=== PATIENT | male | born 1965 | race Caucasian/White ===

== ENCOUNTER 2016-03-16 09:15 | Emergency (ER) | payer OTHER ==
--- NOTE | 2016-03-16 09:30 | ECGEPIP ---
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
[2016-03-16 09:52] LABS: BASO % 0.4 % (0.0-1.0); EOS # 0.1 K/mm3 (0.0-0.50); EOS % 1.8 % (0.0-3.0); LARGE UNSTAINED CELL # 0.2 K/mm3 (0.0-0.4); LARGE UNSTAINED CELL % 2.3 % (0.0-4.0); LYMPH # 1.2 K/mm3 (1.5-4.5); LYMPH % 16.4 % (24.0-44.0); MEAN CORPUSCULAR HEMOGLOBIN 33.9 pg (27.0-33.0); MEAN CORPUSCULAR HGB CONC 35.8 g/dl (32.0-36.5); MEAN CORPUSCULAR VOLUME 94.5 fl (80.0-96.0); MONO # 0.6 K/mm3 (0.0-0.8); MONO % 8.1 % (0.0-5.0); NEUTROPHILS # 5.2 K/mm3 (1.8-7.7); PLATELET COUNT, AUTOMATED 304 k/mm3 (150-450); RED CELL DISTRIBUTION WIDTH 12.2 % (11.5-14.5); WHITE BLOOD COUNT 7.3 K/mm3 (4.0-10.0)
[2016-03-16 10:14] LABS: ALKALINE PHOSPHATASE 75 U/L (45-117); ALT/SGPT 26 U/L (12-78); ANION GAP 9 MEQ/L (8-16); AST/SGOT 28 U/L (15-37); BILIRUBIN,DIRECT 0.2 MG/DL (0.0-0.2); BILIRUBIN,TOTAL 0.6 MG/DL (0.2-1.0); BLOOD UREA NITROGEN 8 MG/DL (7-18); CALCIUM LEVEL 8.6 MG/DL (8.5-10.1); CARBON DIOXIDE LEVEL 27 MEQ/L (21-32); CHLORIDE LEVEL 98 MEQ/L (98-107); CREATININE FOR GFR 0.83 MG/DL (0.70-1.30); GLOMERULAR FILTRATION RATE > 60.0 (>56); GLUCOSE, FASTING 147 MG/DL (70-105); SODIUM LEVEL 134 MEQ/L (136-145)
[2016-03-16 10:18] LABS: ALBUMIN/GLOBULIN RATIO 1.18 (1.00-1.93); TOTAL PROTEIN 7.4 GM/DL (6.4-8.2)
[2016-03-16] MEDS ORDERED: PANTOPRAZOLE 40MG INJ (PROTONIX) (C9113) As Ordered ONE (11:20)
[2016-03-16] MEDS ORDERED: GI COCKTAIL 50ML BTL(HYOSCYAMINE/MAALOX/LIDOCAINE VISCOUS)(1:3:1) As Ordered ONE (11:20)
--- NOTE | 2016-03-16 12:29 | REP ---
Chest two views HISTORY: Chest pain Comparison: 01/20/2010 The lungs are clear. The heart is normal in size. The pulmonary vasculature is normal in appearance. The bony structure is intact. IMPRESSION: No acute disease. Signed by Lyle Núñez MD 03/16/2016 12:20 P
--- NOTE | 2016-03-16 14:27 | EDDOCDS ---
Nurse's Notes [facility] Name: Paz Schmidt Age: 50 yrs Sex: Male : 1965 Arrival Date: 03/16/2016 Time: 09:15 Bed 18 Private MD: No Pcp Diagnosis: Gastro-esophageal reflux disease Presentation: 03/16 09:23 Presenting complaint: Patient states: burning in his chest for the past 2 weeks. jc4 Aspirin was taken SHERIFF. Suicide/Homicide risk assessment- the patient denies having any suicidal and/or homicidal ideations and does not present with any other emotional, behavioral or mental health complaints. 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 Transition of care: patient was not received from another setting of care. 09:23 Acuity: JUNITO Level 2 jc4 09:23 Method Of Arrival: Wheelchair jc4 09:27 Adult Sepsis Screening: The patient does not have new or worsening altered mentation. jc4 Patient's respiratory rate is less than 22. Systolic blood pressure is greater than 100. Patient has a qSOFA score of 0- Negative Sepsis Screen. Red Flag criteria, patient assessed and taken directly to a bed. Triage Assessment: 09:26 General: Appears in no apparent distress. Pain: Pain currently is 7 out of 10 on a pain jc4 scale. HIV screening NA for this visit Offered previously. Cardiovascular: Chest pain is described as Pain is 7 out of 10 on a pain scale. quality is burning, with intermittent tightness "in the middle of my chest" radiates Does not radiate. episodes are intermittent began 2 weeks ago. Historical: - Allergies: no known allergies; - Home Meds: 1. Zantac 150 mg Oral tab 1 tab once daily (Last dose: 03/16/2016 07:00) 2. aspirin 81 mg Oral TbEC 1 tab once daily (Last dose: 03/16/2016 07:00) 3. Vitamin C 1,000 mg Oral tab 1,000 mg daily (Last dose: 03/16/2016 07:00) 4. Calcium + Vitamin D 600 mg calcium- 200 unit Oral tab 1 tab daily (Last dose: 03/16/2016 07:00) - PMHx: GERD; - PSHx: none; - Social history: Smoking status: Patient uses tobacco products, heavy tobacco smoker. No barriers to communication noted, The patient speaks fluent Croatian. - Family history: Not pertinent. - : The pt / caregiver states he / she is not on anticoagulants. Home medication list is obtained from family members. - Exposure Risk Screening:: None identified. Screenin:53 Screening information is obtained from the patient. Fall risk: No risks identified. hs1 Assistance ADL's: requires no assistance with activities of daily living. Abuse/DV Screen: The patient / caregiver reports he/she is: not in a situation that causes fear, pain or injury. Nutritional screening: No deficits noted. Advance Directives: There is no active DNR order. home support is adequate. Assessment: 09:52 General: Appears in no apparent distress, Behavior is appropriate for age, cooperative. hs1 Pain: Location: chest Pain currently is 3 out of 10 on a pain scale. Quality of pain is described as burning. Neurological: No deficits noted. Cardiovascular: Rhythm is sinus rhythm. Respiratory: Airway is patent Respiratory effort is even, unlabored, Respiratory pattern is regular, symmetrical. Derm: Skin is pink, warm & dry. normal. 11:01 Reassessment: Patient appears in no apparent distress at this time. resting on hs1 stretcher talking with resident at this time. . 12:02 General: Appears in no apparent distress, comfortable, Behavior is appropriate for age, hs1 cooperative, Pt being wheeled to X-ray at present. Pt Sinus rhythm on monitor. No other needs noted. . Cardiovascular: Rhythm is sinus rhythm No ectopy. Respiratory: Airway is patent Respiratory effort is even, unlabored, Respiratory pattern is regular, symmetrical, Breath sounds are clear bilaterally. Derm: Skin is pink, warm & dry. normal. 14:24 General: Appears in no apparent distress, comfortable, Behavior is appropriate for age, aa3 cooperative. Pain: Location: mid-sternal area Pain currently is 6 out of 10 on a pain scale. Pain: Quality of pain is described as burning. Neurological: Level of Consciousness is awake, alert, Oriented to person, place, time. Cardiovascular: Capillary refill < 3 seconds. Respiratory: Airway is patent Respiratory effort is even, unlabored, Respiratory pattern is regular, symmetrical. Derm: Skin is intact, is healthy with good turgor. Vital Signs: 09:18 BP 139 / 80; Pulse 81; Resp 18 S; Temp 96.3(O); Pulse Ox 100% on R/A; Weight 67.13 kg gr2 (R); Height 6 ft. 1 in. (185.42 cm) (R); Pain 6/10; 09:30 BP 140 / 85 (auto/); hs1 09:32 Pulse 80 MON; Pulse Ox 99% ; hs1 09:45 BP 136 / 84 (auto/); hs1 09:45 Pulse 74 MON; Pulse Ox 98% ; hs1 10:00 BP 134 / 82 (auto/); hs1 10:00 Pulse 66 MON; Resp 18; Pulse Ox 98% ; hs1 10:15 BP 122 / 79 (auto/); hs1 10:15 Pulse 66 MON; Pulse Ox 99% ; hs1 10:30 BP 127 / 88 (auto/); hs1 10:30 Pulse 70 MON; Pulse Ox 98% ; hs1 10:45 BP 130 / 88 (auto/); hs1 10:46 Pulse 70 MON; Pulse Ox 98% ; hs1 11:00 BP 127 / 83 (auto/); hs1 11:00 Pulse 68 MON; Pulse Ox 97% ; hs1 11:15 BP 125 / 83 (auto/); hs1 11:15 Pulse 66 MON; Pulse Ox 98% ; hs1 11:30 BP 130 / 84 (auto/); hs1 11:31 Pulse 66 MON; Pulse Ox 99% ; hs1 11:45 BP 126 / 83 (auto/); hs1 11:46 Pulse 66 MON; Pulse Ox 99% ; hs1 12:00 BP 128 / 85 (auto/); hs1 12:01 Pulse 68 MON; Resp 18; Pulse Ox 98% ; hs1 12:15 BP 127 / 80 (auto/); hs1 12:16 Pulse 62 MON; Pulse Ox 99% ; hs1 12:30 BP 120 / 82 (auto/); hs1 12:30 Pulse 62 MON; Pulse Ox 98% ; hs1 12:45 BP 122 / 79 (auto/); hs1 12:46 Pulse 60 MON; Pulse Ox 98% ; hs1 14:24 BP 124 / 74; Pulse 66; Resp 16; Temp 97.8(O); Pulse Ox 96% on R/A; Pain 6/10; aa3 09:18 Body Mass Index 19.53 (67.13 kg, 185.42 cm) gr2 Vitals: 09:18 Log In Time: March 16, 2016 at 09:18. RN notified that patient meets Red Flag gr2 criteria. ED Course: 09:16 Patient visited by Brinda Montes. gr2 09:16 Patient moved to Waiting gr2 09:17 No Pcp is Private Physician. gr2 09:19 Patient visited by Brinda Montes. gr2 09:19 Patient moved to Pre RCE gr2 09:21 Patient moved to 18 jc4 09:24 Triage Initiated jc4 09:30 EKG done per protocol. Shown to Amparo Sousa MD. jc4 09:31 Accompanied by Family Member, Patient has correct armband on for positive ct3 identification. Placed in gown. Bed in low position. Call light in reach. Side rails up X2. quick service technician on. Pulse ox on. NIBP on. 09:31 EKG done. (by ED staff). Reviewed by Amparo Sousa MD. ct3 09:32 Patient visited by Isabel Mcnally PCA. ct3 09:46 EKG-ADULT Returned. EDMS 09:47 Basic Metabolic Profile Sent. hs1 09:47 CBC with Diff Sent. hs1 09:47 Cardiac Injury Profile Sent. hs1 09:47 Troponin Sent. hs1 09:51 LIVER PROFILE Sent. hs1 09:51 LIPASE Sent. hs1 09:51 Inserted saline lock: 20 gauge in right antecubital area and blood collected. The hs1 patient tolerated the procedure well. 10:07 Patient visited by Farideh Curry RN. hs1 10:11 [facility] jo4 10:11 Amparo Sousa MD is Attending Physician. jo4 10:15 Patient visited by Susy Maza DO. jo4 10:55 Patient visited by Farideh Curry RN. hs1 11:12 Patient name changed from Paz\\S\\J\\S\\Kitto\\S\\ to Paz\\S\\Carlos Alberto\\S\\Kitto. EDMS 11:16 [facility] Payment Agreement was scanned into [employer] and attached to record. pm4 11:25 Patient visited by Farideh Curry RN. hs1 11:58 Patient visited by Daniel Jernigan PCA. jlf 12:04 The patient / caregiver is instructed regarding the plan of care and ED course. hs1 12:29 Patient visited by Farideh Curry RN. hs1 12:42 Chest, 2 View (pa\\E\\lat) Returned. EDMS 13:01 Patient visited by Farideh Curry RN. hs1 14:01 Patient visited by Amparo Sousa MD. br1 14:06 Lyle Murdock DO is Referral Physician. jo4 14:24 Discontinued IV intact, bleeding controlled, No redness/swelling at site. No procedures aa3 done that require assistance. Administered Medications: 11:26 Drug: pantoprazole 40 mg [pantoprazole 40 mg intravenous solution] Route: IV; Rate: hs1 bolus; Site: right antecubital; 11:26 Drug: GI Cocktail - (Alum-Mag Hydroxide-Simeth Suspension 225 mg-200 mg-25 mg/5 mL 30 hs1 ml, Lidocaine Liquid 2 % 10 ml, Hyoscyamine Liquid 10 ml) Route: PO; Order Results: Lab Order: Basic Metabolic Profile; SPEC'M 03/16/16 09:40 Test: GLUCOSE, FASTING; Value: 147; Range: 70-105; Abnormal: Above high normal; Units: MG/DL; Status: F Test: BLOOD UREA NITROGEN; Value: 8; Range: 7-18; Units: MG/DL; Status: F Test: CREATININE FOR GFR; Value: 0.83; Range: 0.70-1.30; Units: MG/DL; Status: F Test: GLOMERULAR FILTRATION RATE; Value: > 60.0; Range: >56; Status: F Test: SODIUM LEVEL; Value: 134; Range: 136-145; Abnormal: Below low normal; Units: MEQ/L; Status: F Test: POTASSIUM SERUM; Value: 4.0; Range: 3.5-5.1; Units: MEQ/L; Status: F Test: CHLORIDE LEVEL; Value: 98; Range: 98-107; Units: MEQ/L; Status: F Test: CARBON DIOXIDE LEVEL; Value: 27; Range: 21-32; Units: MEQ/L; Status: F Test: ANION GAP; Value: 9; Range: 8-16; Units: MEQ/L; Status: F Test: CALCIUM LEVEL; Value: 8.6; Range: 8.5-10.1; Units: MG/DL; Status: F Test Note: ; Units are mL/min/1.73 m2 Chronic Kidney Disease Staging per NKF: Stage I & II GFR >=60 Normal to Mildly Decreased Stage III GFR 30-59 Moderately Decreased Stage IV GFR 15-29 Severely Decreased Stage V GFR <15 Very Little GFR Left ESRD GFR <15 on ACCIDENT EXAMINER Lab Order: CBC with Diff; SPEC'M 03/16/16 09:40 Test: WHITE BLOOD COUNT; Value: 7.3; Range: 4.0-10.0; Units: K/mm3; Status: F Test: RED BLOOD COUNT; Value: 4.83; Range: 4.30-6.10; Units: M/mm3; Status: F Test: HEMOGLOBIN; Value: 16.3; Range: 14.0-18.0; Units: g/dl; Status: F Test: HEMATOCRIT; Value: 45.6; Range: 42.0-52.0; Units: %; Status: F Test: MEAN CORPUSCULAR VOLUME; Value: 94.5; Range: 80.0-96.0; Units: fl; Status: F Test: MEAN CORPUSCULAR HEMOGLOBIN; Value: 33.9; Range: 27.0-33.0; Abnormal: Above high normal; Units: pg; Status: F Test: MEAN CORPUSCULAR HGB CONC; Value: 35.8; Range: 32.0-36.5; Units: g/dl; Status: F Test: RED CELL DISTRIBUTION WIDTH; Value: 12.2; Range: 11.5-14.5; Units: %; Status: F Test: PLATELET COUNT, AUTOMATED; Value: 304; Range: 150-450; Units: k/mm3; Status: F Test: NEUTROPHILS %; Value: 71.0; Range: 36.0-66.0; Abnormal: Above high normal; Units: %; Status: F Test: LYMPH %; Value: 16.4; Range: 24.0-44.0; Abnormal: Below low normal; Units: %; Status: F Test: MONO %; Value: 8.1; Range: 0.0-5.0; Abnormal: Above high normal; Units: %; Status: F Test: EOS %; Value: 1.8; Range: 0.0-3.0; Units: %; Status: F Test: BASO %; Value: 0.4; Range: 0.0-1.0; Units: %; Status: F Test: LARGE UNSTAINED CELL %; Value: 2.3; Range: 0.0-4.0; Units: %; Status: F Test: NEUTROPHILS #; Value: 5.2; Range: 1.8-7.7; Units: K/mm3; Status: F Test: LYMPH #; Value: 1.2; Range: 1.5-4.5; Abnormal: Below low normal; Units: K/mm3; Status: F Test: MONO #; Value: 0.6; Range: 0.0-0.8; Units: K/mm3; Status: F Test: EOS #; Value: 0.1; Range: 0.0-0.50; Units: K/mm3; Status: F Test: BASO #; Value: 0.0; Range: 0.0-0.2; Units: K/mm3; Status: F Test: LARGE UNSTAINED CELL #; Value: 0.2; Range: 0.0-0.4; Units: K/mm3; Status: F Lab Order: Cardiac Injury Profile; SPEC'M 03/16/16 09:40 Test: CPK CREATINE PHOSPHOKINASE; Value: 109; Range: 39-308; Units: U/L; Status: F Test: CK-MB VALUE MASS; Value: 1.0; Range: 0.0-3.6; Units: NG/ML; Status: F Test: MB/CK RELATIVE INDEX; Value: 0.91; Range: < OR =4; Status: F Test Note: ; DIAGNOSIS CRITERIA MMB ng/ml Relative Index (RI) NON-AMI < or = 5 N/A MILLS ZONE > 5 < or = 4 AMI > 5 > 4 Lab Order: Troponin; SPEC'M 03/16/16 09:40 Test: TROPONIN I; Value: < 0.02; Range: < 0.10; Units: NG/ML; Status: F Test Note: ; Troponin I Reference Interval for [place] LOCI: 99th Percentile= 0.00-0.045 ng/ml Risk Stratification: <= 0.10 ng/ml Decreased Risk for Adverse Clinical Events. 0.10-1.50 ng/ml Increased Risk for Adverse Clinical Events. Evaluation of additional criterion and/or repeat testing in 2-6 hours is suggested to rule out myocardial damage. >= 1.50 ng/ml Indicative of Myocardial Injury. Lab Order: LIPASE; SPEC'M 03/16/16 09:40 Test: LIPASE; Value: 111; Range: 73-393; Units: U/L; Status: F Lab Order: LIVER PROFILE; SPEC'M 03/16/16 09:40 Test: AST/SGOT; Value: 28; Range: 15-37; Units: U/L; Status: F Test: ALT/SGPT; Value: 26; Range: 12-78; Units: U/L; Status: F Test: ALKALINE PHOSPHATASE; Value: 75; Range: 45-117; Units: U/L; Status: F Test: BILIRUBIN,TOTAL; Value: 0.6; Range: 0.2-1.0; Units: MG/DL; Status: F Test: BILIRUBIN,DIRECT; Value: 0.2; Range: 0.0-0.2; Units: MG/DL; Status: F Test: TOTAL PROTEIN; Value: 7.4; Range: 6.4-8.2; Units: GM/DL; Status: F Test: ALBUMIN; Value: 4.0; Range: 3.2-5.2; Units: GM/DL; Status: F Test: ALBUMIN/GLOBULIN RATIO; Value: 1.18; Range: 1.00-1.93; Status: F Radiology Order: EKG-ADULT Test: EKG-ADULT REASON FOR EXAMINATION: Chest Pain; Stationary ECG Study; [facility] - ED; ; Test Date: 2016-03-16; Pat Name: PAZ SCHMIDT Department:; Room: -; 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 The heart is normal in size. The pulmonary vasculature is; normal in appearance. The bony structure is intact.; ; IMPRESSION: No acute disease.; ; ; Signed by; Lyle Núñez MD 03/16/2016 12:20 P; Outcome: 14:07 Discharge ordered by Provider. jo4 14:26 Discharge Assessment: Patient awake and alert. Oriented to person, place and time. aa3 Patient verbalized understanding of disposition instructions. Patient has no functional deficits. patient administered narcotics - no. The following High Risk Discharge criteria are identified: None. Discharged to home ambulatory, with significant other. Condition: good. Discharge instructions given to patient, Instructed on discharge instructions, follow up and referral plans. medication usage, Demonstrated understanding of instructions, medications, Pt was receptive of discharge instructions/ teaching. Prescriptions given X 1. No special radiology studies were completed. Property :Personal belongings accompany Pt. 14:27 Patient left the ED. aa3 Signatures: Dispatcher [employer] EDMS Amparo Sousa MD MD br1 Farideh Curry RN RN hs1 Keesha Peters RN RN jc4 Isabel Mcnally, VP SECURITY VP SECURITY ct3 Brinda Montes gr2 Emilee Bill RN RN aa3 Daniel Jernigan, VP SECURITY VP SECURITY nadinef Susy Maza DO DO jo4 Benedicto Francis, Reg Reg pm4 Corrections: (The following items were deleted from the chart) 09:50 09:47 LIPASE+LAB sent. hs1 EDMS 09:50 09:47 LIVER PROFILE+LAB sent. 1 EDMS [facility]
--- NOTE | 2016-03-16 14:27 | EDDOCDS ---
Physician Documentation [facility] Name: Roosevelt Schmidt Age: 50 yrs Sex: Male : 1965 Arrival Date: 03/16/2016 Time: 09:15 Bed 18 Private MD: No Pcp Disposition: 03/16 14:16 I have independently interviewed and examined the patient, and I agree with the br1 investigation, diagnosis and treatment plan as documented by the Resident. Disposition: 03/16/16 14:07 Discharged to Home/Self Care. Impression: Gastro-esophageal reflux disease. - Condition is Stable. - Discharge Instructions: Gastroesophageal Reflux Disease, Adult. - Prescriptions for Protonix 40 mg Oral Tablet - take 1 tablet by ORAL route once daily; 30 tablet. - Medication Reconciliation, Local Pharmacy Hours form. - Follow up: Lyle Murdock DO; When: 1 week; Reason: Recheck today's complaints. - Problem is new. - Symptoms have improved. - Notes: You were seen in the emergency department for gastroesophageal reflux disease. Your chest x-ray returned reporting no acute disease and laboratory results showed no abnormalities. You were medically managed appropriately while in the ED. A medication called Protonix has been prescribed to control your symtpoms. Please follow-up with Dr. Murdock in 1 week. Historical: - Allergies: no known allergies; - Home Meds: 1. Zantac 150 mg Oral tab 1 tab once daily (Last dose: 03/16/2016 07:00) 2. aspirin 81 mg Oral TbEC 1 tab once daily (Last dose: 03/16/2016 07:00) 3. Vitamin C 1,000 mg Oral tab 1,000 mg daily (Last dose: 03/16/2016 07:00) 4. Calcium + Vitamin D 600 mg calcium- 200 unit Oral tab 1 tab daily (Last dose: 03/16/2016 07:00) - PMHx: GERD; - PSHx: none; - Social history: Smoking status: Patient uses tobacco products, heavy tobacco smoker. No barriers to communication noted, The patient speaks fluent Croatian. - Family history: Not pertinent. - : The pt / caregiver states he / she is not on anticoagulants. Home medication list is obtained from family members. - Exposure Risk Screening:: None identified. Vital Signs: 09:18 BP 139 / 80; Pulse 81; Resp 18 S; Temp 96.3(O); Pulse Ox 100% on R/A; Weight 67.13 kg / gr2 148 lbs (R); Height 6 ft. 1 in. (185.42 cm) (R); Pain 6/10; 09:30 BP 140 / 85 (auto/); hs1 09:32 Pulse 80 MON; Pulse Ox 99% ; hs1 09:45 BP 136 / 84 (auto/); hs1 09:45 Pulse 74 MON; Pulse Ox 98% ; hs1 10:00 BP 134 / 82 (auto/); hs1 10:00 Pulse 66 MON; Resp 18; Pulse Ox 98% ; hs1 10:15 BP 122 / 79 (auto/); hs1 10:15 Pulse 66 MON; Pulse Ox 99% ; hs1 10:30 BP 127 / 88 (auto/); hs1 10:30 Pulse 70 MON; Pulse Ox 98% ; hs1 10:45 BP 130 / 88 (auto/); hs1 10:46 Pulse 70 MON; Pulse Ox 98% ; hs1 11:00 BP 127 / 83 (auto/); hs1 11:00 Pulse 68 MON; Pulse Ox 97% ; hs1 11:15 BP 125 / 83 (auto/); hs1 11:15 Pulse 66 MON; Pulse Ox 98% ; hs1 11:30 BP 130 / 84 (auto/); hs1 11:31 Pulse 66 MON; Pulse Ox 99% ; hs1 11:45 BP 126 / 83 (auto/); hs1 11:46 Pulse 66 MON; Pulse Ox 99% ; hs1 12:00 BP 128 / 85 (auto/); hs1 12:01 Pulse 68 MON; Resp 18; Pulse Ox 98% ; hs1 12:15 BP 127 / 80 (auto/); hs1 12:16 Pulse 62 MON; Pulse Ox 99% ; hs1 12:30 BP 120 / 82 (auto/); hs1 12:30 Pulse 62 MON; Pulse Ox 98% ; hs1 12:45 BP 122 / 79 (auto/); hs1 12:46 Pulse 60 MON; Pulse Ox 98% ; hs1 14:24 BP 124 / 74; Pulse 66; Resp 16; Temp 97.8(O); Pulse Ox 96% on R/A; Pain 6/10; aa3 09:18 Body Mass Index 19.53 (67.13 kg, 185.42 cm) gr2 MDM: 09:22 ECG WITH READING ER PHYS+CARDIAG ordered. EDMS 09:43 Sports Journalist/Pulse Ox/q 30 min VS ordered. br1 09:43 IV Saline Lock ordered. br1 09:43 Rhythm Strip to chart ordered. br1 09:43 Undress patient appropriately for examination ordered. br1 09:44 Basic Metabolic Profile Ordered. EDMS 09:44 CBC with Diff Ordered. EDMS 09:44 Cardiac Injury Profile Ordered. EDMS 09:44 Troponin Ordered. EDMS 09:50 LIPASE Ordered. EDMS 09:50 LIVER PROFILE Ordered. EDMS 11:08 Financial registration complete. pm4 11:16 [facility] Payment Agreement was scanned into [employer] and attached to record. pm4 11:17 pantoprazole 40 mg IV at bolus once ordered. jo4 11:17 GI Cocktail - (Alum-Mag Hydroxide-Simeth 30 ml, Lidocaine 10 ml, Hyoscyamine 10 ml) PO jo4 once; Pre-mixed 50mL unit dose ordered. 11:18 Chest, 2 View (pa\E\lat) Ordered. EDMS 11:46 LIVER PROFILE Reviewed. jo4 11:47 Basic Metabolic Profile Reviewed. jo4 11:47 CBC with Diff Reviewed. jo4 11:48 Cardiac Injury Profile Reviewed. jo4 11:48 Troponin Reviewed. jo4 11:48 LIPASE Reviewed. jo4 13:31 Chest, 2 View (pa\E\lat) Reviewed. jo4 Administered Medications: 11:26 Drug: pantoprazole 40 mg [pantoprazole 40 mg intravenous solution] Route: IV; Rate: hs1 bolus; Site: right antecubital; 11:26 Drug: GI Cocktail - (Alum-Mag Hydroxide-Simeth Suspension 225 mg-200 mg-25 mg/5 mL 30 hs1 ml, Lidocaine Liquid 2 % 10 ml, Hyoscyamine Liquid 10 ml) Route: PO; Signatures: Dispatcher [employer] EDMS Bert Sousa MD MD br1 Keesha Peters RN RN jc4 Emilee Bill RN RN aa3 Susy Maza DO DO jo4 Benedicto Francis, Reg Reg pm4 Farideh Curry RN hs1 The chart was reviewed and I authenticate all verbal orders and agree with the evaluation and treatment provided.Corrections: (The following items were deleted from the chart) 09:44 LIVER PROFILE+LAB ordered. EDMS EDMS :50 09:44 LIPASE+LAB ordered. EDMS EDMS Attachments: 11:16 [facility] Payment Agreement pm4 MTDD
--- NOTE | 2016-03-18 15:28 | EDDOCDS ---
Nurse's Notes [facility] Name: Paz Schmidt Age: 50 yrs Sex: Male : 1965 Arrival Date: 03/16/2016 Time: 09:15 Bed 18 Private MD: No Pcp Diagnosis: Gastro-esophageal reflux disease Presentation: 03/16 09:23 Presenting complaint: Patient states: burning in his chest for the past 2 weeks. 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 Suicide/Homicide risk assessment- the patient denies having any suicidal and/or homicidal ideations and does not present with any other emotional, behavioral or mental health complaints. 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 Transition of care: patient was not received from another setting of care. 09:23 Acuity: JUNITO Level 2 jc4 09:23 Method Of Arrival: Wheelchair jc4 09:27 Adult Sepsis Screening: The patient does not have new or worsening altered mentation. jc4 Patient's respiratory rate is less than 22. Systolic blood pressure is greater than 100. Patient has a qSOFA score of 0- Negative Sepsis Screen. Red Flag criteria, patient assessed and taken directly to a bed. Triage Assessment: 09:26 General: Appears in no apparent distress. Pain: Pain currently is 7 out of 10 on a pain jc4 scale. HIV screening NA for this visit Offered previously. Cardiovascular: Chest pain is described as Pain is 7 out of 10 on a pain scale. quality is burning, with intermittent tightness "in the middle of my chest" radiates Does not radiate. episodes are intermittent began 2 weeks ago. Historical: - Allergies: no known allergies; - Home Meds: 1. Zantac 150 mg Oral tab 1 tab once daily (Last dose: 03/16/2016 07:00) 2. aspirin 81 mg Oral TbEC 1 tab once daily (Last dose: 03/16/2016 07:00) 3. Vitamin C 1,000 mg Oral tab 1,000 mg daily (Last dose: 03/16/2016 07:00) 4. Calcium + Vitamin D 600 mg calcium- 200 unit Oral tab 1 tab daily (Last dose: 03/16/2016 07:00) - PMHx: GERD; - PSHx: none; - Social history: Smoking status: Patient uses tobacco products, heavy tobacco smoker. No barriers to communication noted, The patient speaks fluent Mauritian. - Family history: Not pertinent. - : The pt / caregiver states he / she is not on anticoagulants. Home medication list is obtained from family members. - Exposure Risk Screening:: None identified. Screenin:53 Screening information is obtained from the patient. Fall risk: No risks identified. hs1 Assistance ADL's: requires no assistance with activities of daily living. Abuse/DV Screen: The patient / caregiver reports he/she is: not in a situation that causes fear, pain or injury. Nutritional screening: No deficits noted. Advance Directives: There is no active DNR order. home support is adequate. Assessment: 09:52 General: Appears in no apparent distress, Behavior is appropriate for age, cooperative. hs1 Pain: Location: chest Pain currently is 3 out of 10 on a pain scale. Quality of pain is described as burning. Neurological: No deficits noted. Cardiovascular: Rhythm is sinus rhythm. Respiratory: Airway is patent Respiratory effort is even, unlabored, Respiratory pattern is regular, symmetrical. Derm: Skin is pink, warm & dry. normal. 11:01 Reassessment: Patient appears in no apparent distress at this time. resting on hs1 stretcher talking with resident at this time. . 12:02 General: Appears in no apparent distress, comfortable, Behavior is appropriate for age, hs1 cooperative, Pt being wheeled to X-ray at present. Pt Sinus rhythm on monitor. No other needs noted. . Cardiovascular: Rhythm is sinus rhythm No ectopy. Respiratory: Airway is patent Respiratory effort is even, unlabored, Respiratory pattern is regular, symmetrical, Breath sounds are clear bilaterally. Derm: Skin is pink, warm & dry. normal. 14:24 General: Appears in no apparent distress, comfortable, Behavior is appropriate for age, aa3 cooperative. Pain: Location: mid-sternal area Pain currently is 6 out of 10 on a pain scale. Pain: Quality of pain is described as burning. Neurological: Level of Consciousness is awake, alert, Oriented to person, place, time. Cardiovascular: Capillary refill < 3 seconds. Respiratory: Airway is patent Respiratory effort is even, unlabored, Respiratory pattern is regular, symmetrical. Derm: Skin is intact, is healthy with good turgor. Vital Signs: 09:18 BP 139 / 80; Pulse 81; Resp 18 S; Temp 96.3(O); Pulse Ox 100% on R/A; Weight 67.13 kg gr2 (R); Height 6 ft. 1 in. (185.42 cm) (R); Pain 6/10; 09:30 BP 140 / 85 (auto/); hs1 09:32 Pulse 80 MON; Pulse Ox 99% ; hs1 09:45 BP 136 / 84 (auto/); hs1 09:45 Pulse 74 MON; Pulse Ox 98% ; hs1 10:00 BP 134 / 82 (auto/); hs1 10:00 Pulse 66 MON; Resp 18; Pulse Ox 98% ; hs1 10:15 BP 122 / 79 (auto/); hs1 10:15 Pulse 66 MON; Pulse Ox 99% ; hs1 10:30 BP 127 / 88 (auto/); hs1 10:30 Pulse 70 MON; Pulse Ox 98% ; hs1 10:45 BP 130 / 88 (auto/); hs1 10:46 Pulse 70 MON; Pulse Ox 98% ; hs1 11:00 BP 127 / 83 (auto/); hs1 11:00 Pulse 68 MON; Pulse Ox 97% ; hs1 11:15 BP 125 / 83 (auto/); hs1 11:15 Pulse 66 MON; Pulse Ox 98% ; hs1 11:30 BP 130 / 84 (auto/); hs1 11:31 Pulse 66 MON; Pulse Ox 99% ; hs1 11:45 BP 126 / 83 (auto/); hs1 11:46 Pulse 66 MON; Pulse Ox 99% ; hs1 12:00 BP 128 / 85 (auto/); hs1 12:01 Pulse 68 MON; Resp 18; Pulse Ox 98% ; hs1 12:15 BP 127 / 80 (auto/); hs1 12:16 Pulse 62 MON; Pulse Ox 99% ; hs1 12:30 BP 120 / 82 (auto/); hs1 12:30 Pulse 62 MON; Pulse Ox 98% ; hs1 12:45 BP 122 / 79 (auto/); hs1 12:46 Pulse 60 MON; Pulse Ox 98% ; hs1 14:24 BP 124 / 74; Pulse 66; Resp 16; Temp 97.8(O); Pulse Ox 96% on R/A; Pain 6/10; aa3 09:18 Body Mass Index 19.53 (67.13 kg, 185.42 cm) gr2 Vitals: 09:18 Log In Time: March 16, 2016 at 09:18. RN notified that patient meets Red Flag gr2 criteria. ED Course: 09:16 Patient visited by Brinda Montes. gr2 09:16 Patient moved to Waiting gr2 09:17 No Pcp is Private Physician. gr2 09:19 Patient visited by Brinda Montes. gr2 09:19 Patient moved to Pre RCE gr2 09:21 Patient moved to 18 jc4 09:24 Triage Initiated jc4 09:30 EKG done per protocol. Shown to Amparo Sousa MD. jc4 09:31 Accompanied by Family Member, Patient has correct armband on for positive ct3 identification. Placed in gown. Bed in low position. Call light in reach. Side rails up X2. property assessment monitor on. Pulse ox on. NIBP on. 09:31 EKG done. (by ED staff). Reviewed by Amparo Sousa MD. ct3 09:32 Patient visited by Isabel Mcnally PCA. ct3 09:46 EKG-ADULT Returned. EDMS 09:47 Basic Metabolic Profile Sent. hs1 09:47 CBC with Diff Sent. hs1 09:47 Cardiac Injury Profile Sent. hs1 09:47 Troponin Sent. hs1 09:51 LIVER PROFILE Sent. hs1 09:51 LIPASE Sent. hs1 09:51 Inserted saline lock: 20 gauge in right antecubital area and blood collected. The hs1 patient tolerated the procedure well. 10:07 Patient visited by Farideh Crury RN. hs1 10:11 Susy Maza DO is [facility]. jo4 10:11 Amparo Sousa MD is Attending Physician. jo4 10:15 Patient visited by Susy Maza DO. jo4 10:55 Patient visited by Farideh Curry RN. hs1 11:12 Patient name changed from Paz\\S\\J\\S\\Kitto\\S\\ to Paz\\S\\Carlos Alberto\\S\\Kitto. EDMS 11:16 [facility] Payment Agreement was scanned into [employer] and attached to record. pm4 11:25 Patient visited by Farideh Curry RN. hs1 11:58 Patient visited by Daniel Jernigan PCA. jlf 12:04 The patient / caregiver is instructed regarding the plan of care and ED course. hs1 12:29 Patient visited by Farideh Curry RN. hs1 12:42 Chest, 2 View (pa\\E\\lat) Returned. EDMS 13:01 Patient visited by Farideh Curry RN. hs1 14:01 Patient visited by Amparo Sousa MD. br1 14:06 Lyle Murdock DO is Referral Physician. jo4 14:24 Discontinued IV intact, bleeding controlled, No redness/swelling at site. No procedures aa3 done that require assistance. 03/17 11:10 T-Sheet-- Draft Copy was scanned into [employer] and attached to record. gb Administered Medications: 03/16 11:26 Drug: pantoprazole 40 mg [pantoprazole 40 mg intravenous solution] Route: IV; Rate: hs1 bolus; Site: right antecubital; 11:26 Drug: GI Cocktail - (Alum-Mag Hydroxide-Simeth Suspension 225 mg-200 mg-25 mg/5 mL 30 hs1 ml, Lidocaine Liquid 2 % 10 ml, Hyoscyamine Liquid 10 ml) Route: PO; Order Results: Lab Order: Basic Metabolic Profile; SPEC'M 03/16/16 09:40 Test: GLUCOSE, FASTING; Value: 147; Range: 70-105; Abnormal: Above high normal; Units: MG/DL; Status: F Test: BLOOD UREA NITROGEN; Value: 8; Range: 7-18; Units: MG/DL; Status: F Test: CREATININE FOR GFR; Value: 0.83; Range: 0.70-1.30; Units: MG/DL; Status: F Test: GLOMERULAR FILTRATION RATE; Value: > 60.0; Range: >56; Status: F Test: SODIUM LEVEL; Value: 134; Range: 136-145; Abnormal: Below low normal; Units: MEQ/L; Status: F Test: POTASSIUM SERUM; Value: 4.0; Range: 3.5-5.1; Units: MEQ/L; Status: F Test: CHLORIDE LEVEL; Value: 98; Range: 98-107; Units: MEQ/L; Status: F Test: CARBON DIOXIDE LEVEL; Value: 27; Range: 21-32; Units: MEQ/L; Status: F Test: ANION GAP; Value: 9; Range: 8-16; Units: MEQ/L; Status: F Test: CALCIUM LEVEL; Value: 8.6; Range: 8.5-10.1; Units: MG/DL; Status: F Test Note: ; Units are mL/min/1.73 m2 Chronic Kidney Disease Staging per NKF: Stage I & II GFR >=60 Normal to Mildly Decreased Stage III GFR 30-59 Moderately Decreased Stage IV GFR 15-29 Severely Decreased Stage V GFR <15 Very Little GFR Left ESRD GFR <15 on GREEN [employer]FFEE BLENDER Lab Order: CBC with Diff; SPEC'M 03/16/16 09:40 Test: WHITE BLOOD COUNT; Value: 7.3; Range: 4.0-10.0; Units: K/mm3; Status: F Test: RED BLOOD COUNT; Value: 4.83; Range: 4.30-6.10; Units: M/mm3; Status: F Test: HEMOGLOBIN; Value: 16.3; Range: 14.0-18.0; Units: g/dl; Status: F Test: HEMATOCRIT; Value: 45.6; Range: 42.0-52.0; Units: %; Status: F Test: MEAN CORPUSCULAR VOLUME; Value: 94.5; Range: 80.0-96.0; Units: fl; Status: F Test: MEAN CORPUSCULAR HEMOGLOBIN; Value: 33.9; Range: 27.0-33.0; Abnormal: Above high normal; Units: pg; Status: F Test: MEAN CORPUSCULAR HGB CONC; Value: 35.8; Range: 32.0-36.5; Units: g/dl; Status: F Test: RED CELL DISTRIBUTION WIDTH; Value: 12.2; Range: 11.5-14.5; Units: %; Status: F Test: PLATELET COUNT, AUTOMATED; Value: 304; Range: 150-450; Units: k/mm3; Status: F Test: NEUTROPHILS %; Value: 71.0; Range: 36.0-66.0; Abnormal: Above high normal; Units: %; Status: F Test: LYMPH %; Value: 16.4; Range: 24.0-44.0; Abnormal: Below low normal; Units: %; Status: F Test: MONO %; Value: 8.1; Range: 0.0-5.0; Abnormal: Above high normal; Units: %; Status: F Test: EOS %; Value: 1.8; Range: 0.0-3.0; Units: %; Status: F Test: BASO %; Value: 0.4; Range: 0.0-1.0; Units: %; Status: F Test: LARGE UNSTAINED CELL %; Value: 2.3; Range: 0.0-4.0; Units: %; Status: F Test: NEUTROPHILS #; Value: 5.2; Range: 1.8-7.7; Units: K/mm3; Status: F Test: LYMPH #; Value: 1.2; Range: 1.5-4.5; Abnormal: Below low normal; Units: K/mm3; Status: F Test: MONO #; Value: 0.6; Range: 0.0-0.8; Units: K/mm3; Status: F Test: EOS #; Value: 0.1; Range: 0.0-0.50; Units: K/mm3; Status: F Test: BASO #; Value: 0.0; Range: 0.0-0.2; Units: K/mm3; Status: F Test: LARGE UNSTAINED CELL #; Value: 0.2; Range: 0.0-0.4; Units: K/mm3; Status: F Lab Order: Cardiac Injury Profile; SPEC03/16/16 09:40 Test: CPK CREATINE PHOSPHOKINASE; Value: 109; Range: 39-308; Units: U/L; Status: F Test: CK-MB VALUE MASS; Value: 1.0; Range: 0.0-3.6; Units: NG/ML; Status: F Test: MB/CK RELATIVE INDEX; Value: 0.91; Range: < OR =4; Status: F Test Note: ; DIAGNOSIS CRITERIA MMB ng/ml Relative Index (RI) NON-AMI < or = 5 N/A MILLS ZONE > 5 < or = 4 AMI > 5 > 4 Lab Order: Troponin; SPEC'03/16/16 09:40 Test: TROPONIN I; Value: < 0.02; Range: < 0.10; Units: NG/ML; Status: F Test Note: ; Troponin I Reference Interval for Stickybits LOCI: 99th Percentile= 0.00-0.045 ng/ml Risk Stratification: <= 0.10 ng/ml Decreased Risk for Adverse Clinical Events. 0.10-1.50 ng/ml Increased Risk for Adverse Clinical Events. Evaluation of additional criterion and/or repeat testing in 2-6 hours is suggested to rule out myocardial damage. >= 1.50 ng/ml Indicative of Myocardial Injury. Lab Order: LIPASE; SPEC'M 03/16/16 09:40 Test: LIPASE; Value: 111; Range: 73-393; Units: U/L; Status: F Lab Order: LIVER PROFILE; SPEC'M 03/16/16 09:40 Test: AST/SGOT; Value: 28; Range: 15-37; Units: U/L; Status: F Test: ALT/SGPT; Value: 26; Range: 12-78; Units: U/L; Status: F Test: ALKALINE PHOSPHATASE; Value: 75; Range: 45-117; Units: U/L; Status: F Test: BILIRUBIN,TOTAL; Value: 0.6; Range: 0.2-1.0; Units: MG/DL; Status: F Test: BILIRUBIN,DIRECT; Value: 0.2; Range: 0.0-0.2; Units: MG/DL; Status: F Test: TOTAL PROTEIN; Value: 7.4; Range: 6.4-8.2; Units: GM/DL; Status: F Test: ALBUMIN; Value: 4.0; Range: 3.2-5.2; Units: GM/DL; Status: F Test: ALBUMIN/GLOBULIN RATIO; Value: 1.18; Range: 1.00-1.93; Status: F Radiology Order: EKG-ADULT Test: EKG-ADULT REASON FOR EXAMINATION: Chest Pain; Stationary ECG Study; [facility] - ED; ; Test Date: 2016-03-16; Pat Name: PAZ SCHMIDT Department:; Room: -; 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 The heart is normal in size. The pulmonary vasculature is; normal in appearance. The bony structure is intact.; ; IMPRESSION: No acute disease.; ; ; Signed by; Lyle Núñez MD 03/16/2016 12:20 P; Outcome: 14:07 Discharge ordered by Provider. jo4 14:26 Discharge Assessment: Patient awake and alert. Oriented to person, place and time. aa3 Patient verbalized understanding of disposition instructions. Patient has no functional deficits. patient administered narcotics - no. The following High Risk Discharge criteria are identified: None. Discharged to home ambulatory, with significant other. Condition: good. Discharge instructions given to patient, Instructed on discharge instructions, follow up and referral plans. medication usage, Demonstrated understanding of instructions, medications, Pt was receptive of discharge instructions/ teaching. Prescriptions given X 1. No special radiology studies were completed. Property :Personal belongings accompany Pt. 14:27 Patient left the ED. aa3 Signatures: Dispatcher [employer] EDMS April Osborne, Reg Reg gb Amparo Sousa MD MD br1 Farideh Curry RN RN hs1 Keesha Peters RN RN jc4 Isabel Mcnally, DIRECTOR OF MEDICAL REVIEW DIRECTOR OF MEDICAL REVIEW ct3 Brinda Montes gr2 Emilee Bill RN RN aa3 Daniel Jernigan, DIRECTOR OF MEDICAL REVIEW DIRECTOR OF MEDICAL REVIEW nadinef Susy Maza DO DO jo4 Benedicto Francis, Reg Reg pm4 Corrections: (The following items were deleted from the chart) 09:50 09:47 LIPASE+LAB sent. 1 EDMS 09:50 09:47 LIVER PROFILE+LAB sent. 1 EDMS Chart Complete MTDD
--- NOTE | 2016-03-18 15:28 | EDDOCDS ---
Physician Documentation [facility] Name: Roosevelt Schmidt Age: 50 yrs Sex: Male : 1965 Arrival Date: 03/16/2016 Time: 09:15 Bed 18 Private MD: No Pcp Disposition: 03/16 14:16 I have independently interviewed and examined the patient, and I agree with the br1 investigation, diagnosis and treatment plan as documented by the Resident. Disposition: 03/16/16 14:07 Discharged to Home/Self Care. Impression: Gastro-esophageal reflux disease. - Condition is Stable. - Discharge Instructions: Gastroesophageal Reflux Disease, Adult. - Prescriptions for Protonix 40 mg Oral Tablet - take 1 tablet by ORAL route once daily; 30 tablet. - Medication Reconciliation, Local Pharmacy Hours form. - Follow up: Lyle Murdock DO; When: 1 week; Reason: Recheck today's complaints. - Problem is new. - Symptoms have improved. - Notes: You were seen in the emergency department for gastroesophageal reflux disease. Your chest x-ray returned reporting no acute disease and laboratory results showed no abnormalities. You were medically managed appropriately while in the ED. A medication called Protonix has been prescribed to control your symtpoms. Please follow-up with Dr. Murdock in 1 week. Historical: - Allergies: no known allergies; - Home Meds: 1. Zantac 150 mg Oral tab 1 tab once daily (Last dose: 03/16/2016 07:00) 2. aspirin 81 mg Oral TbEC 1 tab once daily (Last dose: 03/16/2016 07:00) 3. Vitamin C 1,000 mg Oral tab 1,000 mg daily (Last dose: 03/16/2016 07:00) 4. Calcium + Vitamin D 600 mg calcium- 200 unit Oral tab 1 tab daily (Last dose: 03/16/2016 07:00) - PMHx: GERD; - PSHx: none; - Social history: Smoking status: Patient uses tobacco products, heavy tobacco smoker. No barriers to communication noted, The patient speaks fluent Luxembourgish. - Family history: Not pertinent. - : The pt / caregiver states he / she is not on anticoagulants. Home medication list is obtained from family members. - Exposure Risk Screening:: None identified. Vital Signs: 09:18 BP 139 / 80; Pulse 81; Resp 18 S; Temp 96.3(O); Pulse Ox 100% on R/A; Weight 67.13 kg / gr2 148 lbs (R); Height 6 ft. 1 in. (185.42 cm) (R); Pain 6/10; 09:30 BP 140 / 85 (auto/); hs1 09:32 Pulse 80 MON; Pulse Ox 99% ; hs1 09:45 BP 136 / 84 (auto/); hs1 09:45 Pulse 74 MON; Pulse Ox 98% ; hs1 10:00 BP 134 / 82 (auto/); hs1 10:00 Pulse 66 MON; Resp 18; Pulse Ox 98% ; hs1 10:15 BP 122 / 79 (auto/); hs1 10:15 Pulse 66 MON; Pulse Ox 99% ; hs1 10:30 BP 127 / 88 (auto/); hs1 10:30 Pulse 70 MON; Pulse Ox 98% ; hs1 10:45 BP 130 / 88 (auto/); hs1 10:46 Pulse 70 MON; Pulse Ox 98% ; hs1 11:00 BP 127 / 83 (auto/); hs1 11:00 Pulse 68 MON; Pulse Ox 97% ; hs1 11:15 BP 125 / 83 (auto/); hs1 11:15 Pulse 66 MON; Pulse Ox 98% ; hs1 11:30 BP 130 / 84 (auto/); hs1 11:31 Pulse 66 MON; Pulse Ox 99% ; hs1 11:45 BP 126 / 83 (auto/); hs1 11:46 Pulse 66 MON; Pulse Ox 99% ; hs1 12:00 BP 128 / 85 (auto/); hs1 12:01 Pulse 68 MON; Resp 18; Pulse Ox 98% ; hs1 12:15 BP 127 / 80 (auto/); hs1 12:16 Pulse 62 MON; Pulse Ox 99% ; hs1 12:30 BP 120 / 82 (auto/); hs1 12:30 Pulse 62 MON; Pulse Ox 98% ; hs1 12:45 BP 122 / 79 (auto/); hs1 12:46 Pulse 60 MON; Pulse Ox 98% ; hs1 14:24 BP 124 / 74; Pulse 66; Resp 16; Temp 97.8(O); Pulse Ox 96% on R/A; Pain 6/10; aa3 09:18 Body Mass Index 19.53 (67.13 kg, 185.42 cm) gr2 MDM: 09:22 ECG WITH READING ER PHYS+CARDIAG ordered. EDMS 09:43 Edi Programmer Analyst/Pulse Ox/q 30 min VS ordered. br1 09:43 IV Saline Lock ordered. br1 09:43 Rhythm Strip to chart ordered. br1 09:43 Undress patient appropriately for examination ordered. br1 09:44 Basic Metabolic Profile Ordered. EDMS 09:44 CBC with Diff Ordered. EDMS 09:44 Cardiac Injury Profile Ordered. EDMS 09:44 Troponin Ordered. EDMS 09:50 LIPASE Ordered. EDMS 09:50 LIVER PROFILE Ordered. EDMS 11:08 Financial registration complete. pm4 11:[address] [facility] Payment Agreement was scanned into [employer] and attached to record. pm4 11:17 pantoprazole 40 mg IV at bolus once ordered. jo4 11:17 GI Cocktail - (Alum-Mag Hydroxide-Simeth 30 ml, Lidocaine 10 ml, Hyoscyamine 10 ml) PO jo4 once; Pre-mixed 50mL unit dose ordered. 11:18 Chest, 2 View (pa\E\lat) Ordered. EDMS 11:46 LIVER PROFILE Reviewed. jo4 11:47 Basic Metabolic Profile Reviewed. jo4 11:47 CBC with Diff Reviewed. jo4 11:48 Cardiac Injury Profile Reviewed. jo4 11:48 Troponin Reviewed. jo4 11:48 LIPASE Reviewed. jo4 13:31 Chest, 2 View (pa\E\lat) Reviewed. jo4 03/17 11:10 T-Sheet-- Draft Copy was scanned into [employer] and attached to record. gb Administered Medications: 03/16 11:26 Drug: pantoprazole 40 mg [pantoprazole 40 mg intravenous solution] Route: IV; Rate: hs1 bolus; Site: right antecubital; 11:26 Drug: GI Cocktail - (Alum-Mag Hydroxide-Simeth Suspension 225 mg-200 mg-25 mg/5 mL 30 hs1 ml, Lidocaine Liquid 2 % 10 ml, Hyoscyamine Liquid 10 ml) Route: PO; Signatures: Dispatcher [employer] EDMS April Osborne, Reg Reg gb Bert Sousa MD MD br1 Keesha Peters RN RN jc4 Emilee Bill RN RN aa3 Susy Maza DO DO jo4 Benedicto Francis, Reg Reg pm4 Farideh Curry RN hs1 The chart was reviewed and I authenticate all verbal orders and agree with the evaluation and treatment provided.Corrections: (The following items were deleted from the chart) 09:50 09:44 LIVER PROFILE+LAB ordered. EDMS EDMS 09:50 09:44 LIPASE+LAB ordered. EDMS EDMS Attachments: 11:[address] [facility] Payment Agreement pm4 03/17 11:10 T-Sheet-- Draft Copy gb Chart Complete MTDD
--- NOTE | 2016-03-18 15:28 | EDDOCDS ---
Physician Documentation [facility] Name: Roosevelt Schmidt Age: 50 yrs Sex: Male : 1965 Arrival Date: 03/16/2016 Time: 09:15 Bed 18 Private MD: No Pcp Disposition: 03/16 14:16 I have independently interviewed and examined the patient, and I agree with the br1 investigation, diagnosis and treatment plan as documented by the Resident. Disposition: 03/16/16 14:07 Discharged to Home/Self Care. Impression: Gastro-esophageal reflux disease. - Condition is Stable. - Discharge Instructions: Gastroesophageal Reflux Disease, Adult. - Prescriptions for Protonix 40 mg Oral Tablet - take 1 tablet by ORAL route once daily; 30 tablet. - Medication Reconciliation, Local Pharmacy Hours form. - Follow up: Lyle Murdock DO; When: 1 week; Reason: Recheck today's complaints. - Problem is new. - Symptoms have improved. - Notes: You were seen in the emergency department for gastroesophageal reflux disease. Your chest x-ray returned reporting no acute disease and laboratory results showed no abnormalities. You were medically managed appropriately while in the ED. A medication called Protonix has been prescribed to control your symtpoms. Please follow-up with Dr. Murdock in 1 week. Historical: - Allergies: no known allergies; - Home Meds: 1. Zantac 150 mg Oral tab 1 tab once daily (Last dose: 03/16/2016 07:00) 2. aspirin 81 mg Oral TbEC 1 tab once daily (Last dose: 03/16/2016 07:00) 3. Vitamin C 1,000 mg Oral tab 1,000 mg daily (Last dose: 03/16/2016 07:00) 4. Calcium + Vitamin D 600 mg calcium- 200 unit Oral tab 1 tab daily (Last dose: 03/16/2016 07:00) - PMHx: GERD; - PSHx: none; - Social history: Smoking status: Patient uses tobacco products, heavy tobacco smoker. No barriers to communication noted, The patient speaks fluent Telugu. - Family history: Not pertinent. - : The pt / caregiver states he / she is not on anticoagulants. Home medication list is obtained from family members. - Exposure Risk Screening:: None identified. Vital Signs: 09:18 BP 139 / 80; Pulse 81; Resp 18 S; Temp 96.3(O); Pulse Ox 100% on R/A; Weight 67.13 kg / gr2 148 lbs (R); Height 6 ft. 1 in. (185.42 cm) (R); Pain 6/10; 09:30 BP 140 / 85 (auto/); hs1 09:32 Pulse 80 MON; Pulse Ox 99% ; hs1 09:45 BP 136 / 84 (auto/); hs1 09:45 Pulse 74 MON; Pulse Ox 98% ; hs1 10:00 BP 134 / 82 (auto/); hs1 10:00 Pulse 66 MON; Resp 18; Pulse Ox 98% ; hs1 10:15 BP 122 / 79 (auto/); hs1 10:15 Pulse 66 MON; Pulse Ox 99% ; hs1 10:30 BP 127 / 88 (auto/); hs1 10:30 Pulse 70 MON; Pulse Ox 98% ; hs1 10:45 BP 130 / 88 (auto/); hs1 10:46 Pulse 70 MON; Pulse Ox 98% ; hs1 11:00 BP 127 / 83 (auto/); hs1 11:00 Pulse 68 MON; Pulse Ox 97% ; hs1 11:15 BP 125 / 83 (auto/); hs1 11:15 Pulse 66 MON; Pulse Ox 98% ; hs1 11:30 BP 130 / 84 (auto/); hs1 11:31 Pulse 66 MON; Pulse Ox 99% ; hs1 11:45 BP 126 / 83 (auto/); hs1 11:46 Pulse 66 MON; Pulse Ox 99% ; hs1 12:00 BP 128 / 85 (auto/); hs1 12:01 Pulse 68 MON; Resp 18; Pulse Ox 98% ; hs1 12:15 BP 127 / 80 (auto/); hs1 12:16 Pulse 62 MON; Pulse Ox 99% ; hs1 12:30 BP 120 / 82 (auto/); hs1 12:30 Pulse 62 MON; Pulse Ox 98% ; hs1 12:45 BP 122 / 79 (auto/); hs1 12:46 Pulse 60 MON; Pulse Ox 98% ; hs1 14:24 BP 124 / 74; Pulse 66; Resp 16; Temp 97.8(O); Pulse Ox 96% on R/A; Pain 6/10; aa3 09:18 Body Mass Index 19.53 (67.13 kg, 185.42 cm) gr2 MDM: 09:22 ECG WITH READING ER PHYS+CARDIAG ordered. EDMS 09:43 Offset Press Assistant/Pulse Ox/q 30 min VS ordered. br1 09:43 IV Saline Lock ordered. br1 09:43 Rhythm Strip to chart ordered. br1 09:43 Undress patient appropriately for examination ordered. br1 09:44 Basic Metabolic Profile Ordered. EDMS 09:44 CBC with Diff Ordered. EDMS 09:44 Cardiac Injury Profile Ordered. EDMS 09:44 Troponin Ordered. EDMS 09:50 LIPASE Ordered. EDMS 09:50 LIVER PROFILE Ordered. EDMS 11:08 Financial registration complete. pm4 11:16 [facility] [place] was scanned into [employer] and attached to record. pm4 11:17 pantoprazole 40 mg IV at bolus once ordered. jo4 11:17 GI Cocktail - (Alum-Mag Hydroxide-Simeth 30 ml, Lidocaine 10 ml, Hyoscyamine 10 ml) PO jo4 once; Pre-mixed 50mL unit dose ordered. 11:18 Chest, 2 View (pa\E\lat) Ordered. EDMS 11:46 LIVER PROFILE Reviewed. jo4 11:47 Basic Metabolic Profile Reviewed. jo4 11:47 CBC with Diff Reviewed. jo4 11:48 Cardiac Injury Profile Reviewed. jo4 11:48 Troponin Reviewed. jo4 11:48 LIPASE Reviewed. jo4 13:31 Chest, 2 View (pa\E\lat) Reviewed. jo4 03/17 11:10 T-Sheet-- Draft Copy was scanned into CoNarrative and attached to record. gb Administered Medications: 03/16 11:26 Drug: pantoprazole 40 mg [pantoprazole 40 mg intravenous solution] Route: IV; Rate: hs1 bolus; Site: right antecubital; 11:26 Drug: GI Cocktail - (Alum-Mag Hydroxide-Simeth Suspension 225 mg-200 mg-25 mg/5 mL 30 hs1 ml, Lidocaine Liquid 2 % 10 ml, Hyoscyamine Liquid 10 ml) Route: PO; Signatures: Dispatcher [employer] EDMS April Osborne, Reg Reg gb Bert Sousa MD MD br1 Keesha Peters RN RN jc4 Emilee Bill RN RN aa3 Susy Maza DO DO jo4 Benedicto Francis, Reg Reg pm4 Farideh Curry RN hs1 The chart was reviewed and I authenticate all verbal orders and agree with the evaluation and treatment provided.Corrections: (The following items were deleted from the chart) 09:50 09:44 LIVER PROFILE+LAB ordered. EDMS EDMS 09:50 09:44 LIPASE+LAB ordered. EDMS EDMS Attachments: 11:16 [facility] [place] Agreement pm4 03/17 11:10 T-Sheet-- Draft Copy gb Chart Complete MTDD
== END 2016-03-16 14:27 | disposition home or self-care (01) ==
LOC: M ED 09:15
DX: K21.9 Gastro-esophageal reflux disease without esophagitis (principal); F17.210 Nicotine dependence, cigarettes, uncomplicated; Z79.82 Long term (current) use of aspirin; Z79.899 Other long term (current) drug therapy
CPT/HCPCS: 36415; 71020; 80048; 80076; 82550; 82553; 83690; 85025; 93005; 93041; 96374; 99285; C9113

== ENCOUNTER 2017-04-14 08:22 | Day surgery (SDC) | payer OTHER ==
[2017-04-14] MEDS: NS 1,000 ML IV (08:30)
[2017-04-14] MEDS ORDERED: PROPOFOL 200 MG/20 ML VIAL As Ordered ×4 (09:55→10:31)
[2017-04-14] MEDS ORDERED: LIDOCAINE 2% INJ 100 MG/5 ML SDV (FOR ANES.) As Ordered (09:55)
== END 2017-04-14 11:08 | disposition home or self-care (01) ==
LOC: M OPP 08:22
DX: Z12.11 Encounter for screening for malignant neoplasm of colon (principal); D12.2 Benign neoplasm of ascending colon; K57.30 Diverticulosis of large intestine without perforation or abscess without bleeding; K21.9 Gastro-esophageal reflux disease without esophagitis; R12 Heartburn; K22.8 Other specified diseases of esophagus; K29.70 Gastritis, unspecified, without bleeding; M19.90 Unspecified osteoarthritis, unspecified site; Z80.3 Family history of malignant neoplasm of breast; Z80.8 Family history of malignant neoplasm of other organs or systems; F17.210 Nicotine dependence, cigarettes, uncomplicated; Z79.82 Long term (current) use of aspirin; Z79.899 Other long term (current) drug therapy
CPT/HCPCS: G0121

== ENCOUNTER → 2022-02-23 | Outpatient (CLI) | payer OTHER ==
[~2022-02-23] MED LIST: ASPI81TA26 PO; CALC600T57 PO; CALCCHW8 PO; MAGN500C PO; OMEP1CAP73 PO; VITA-243 PO; VITATAB11 PO
== END ==
LOC: M WUC 13:05
PROVIDERS: ATTEND Physician Assistant
DX: R07.89 Other chest pain (principal)

== ENCOUNTER → 2022-03-26 | Outpatient (REF) | payer OTHER | LOC: M LAB REF 14:13 | PROVIDERS: ATTEND Otolaryngology | DX: L72.0 Epidermal cyst (principal) ==

== ENCOUNTER → 2022-04-22 | Outpatient (CLI) | payer OTHER ==
[2022-04-22 11:06] LABS: BASO % 0.7 % (0.0-1.0); EOS # 0.1 10^3/uL (0.0-0.5); EOS % 2.4 % (0.0-3.0); HEMATOCRIT 43.9 % (42.0-52.0); HEMOGLOBIN 15.8 g/dl (13.5-17.5); LYMPH # 1.3 10^3/uL (1.5-5.0); LYMPH % 23.8 % (24.0-44.0); MEAN CORPUSCULAR HEMOGLOBIN 34.7 pg (27.0-33.0); MEAN CORPUSCULAR VOLUME 96.5 fl (80.0-96.0); MONO # 0.7 10^3/uL (0.0-0.8); MONO % 13.5 % (2.0-8.0); NEUTROPHILS # 3.2 10^3/uL (1.5-8.5); NEUTROPHILS % 59.4 % (36.0-66.0); PLATELET COUNT, AUTOMATED 269 10^3/uL (150-450); RED BLOOD COUNT 4.55 10^6/uL (4.30-6.10); WHITE BLOOD COUNT 5.3 10^3/uL (4.0-10.0)
[2022-04-22 14:50] LABS: ALBUMIN 3.8 G/DL (3.2-5.2); ALKALINE PHOSPHATASE 97 U/L (46-116); ALT/SGPT 18 U/L (7.0-40); AST/SGOT 29 U/L (<34); BILIRUBIN,TOTAL 0.9 MG/DL (0.3-1.2); BLOOD UREA NITROGEN 10 MG/DL (9-23); CALCIUM LEVEL 8.9 MG/DL (8.5-10.1); CARBON DIOXIDE LEVEL 24 MMOL/L (20-31); CHLORIDE LEVEL 103 MMOL/L (98-107); CHOLESTEROL LEVEL 213 MG/DL (<200); CHOLESTEROL RISK RATIO 1.96 (<5); CREATININE FOR GFR 0.73 MG/DL (0.70-1.30); GLOMERULAR FILTRATION RATE > 60.0 (>56); GLUCOSE, FASTING 80 MG/DL (60-100); HDL CHOLESTEROL 108.6 MG/DL (>40); NON-HDL-C 104 MG/DL; POTASSIUM SERUM 4.3 MMOL/L (3.5-5.1); PROSTATIC SPECIFIC AG MONITOR 0.45 NG/ML (< 4.00); SODIUM LEVEL 138 MMOL/L (136-145); THYROID STIMULATING HORMONE 0.735 uIU/ML (0.55-4.78)
[2022-04-22 22:10] LABS: LDL CHOLESTEROL 90.8 MG/DL (<100); TOTAL PROTEIN 6.9 G/DL (5.7-8.2); TRIGLYCERIDES LEVEL 68 MG/DL (<150)
== END ==
LOC: M WUC 08:27
PROVIDERS: ATTEND Physician Assistant
DX: R07.89 Other chest pain (principal); E78.5 Hyperlipidemia, unspecified; R35.1 Nocturia; R63.4 Abnormal weight loss

== ENCOUNTER → 2022-04-22 | Outpatient (CLI) | payer OTHER ==
[2022-04-22 11:07] LABS: BASO # 0.1 10^3/uL (0.0-0.2); BASO % 0.9 % (0.0-1.0); EOS # 0.1 10^3/uL (0.0-0.5); EOS % 2.4 % (0.0-3.0); HEMATOCRIT 43.8 % (42.0-52.0); HEMOGLOBIN 15.7 g/dl (13.5-17.5); LYMPH # 1.3 10^3/uL (1.5-5.0); LYMPH % 23.7 % (24.0-44.0); MEAN CORPUSCULAR HEMOGLOBIN 34.6 pg (27.0-33.0); MEAN CORPUSCULAR HGB CONC 35.8 g/dl (32.0-36.5); MEAN CORPUSCULAR VOLUME 96.5 fl (80.0-96.0); MONO # 0.7 10^3/uL (0.0-0.8); MONO % 13.5 % (2.0-8.0); NEUTROPHILS # 3.2 10^3/uL (1.5-8.5); NEUTROPHILS % 59.3 % (36.0-66.0); PLATELET COUNT, AUTOMATED 253 10^3/uL (150-450); RED BLOOD COUNT 4.54 10^6/uL (4.30-6.10); WHITE BLOOD COUNT 5.4 10^3/uL (4.0-10.0)
[2022-04-22 13:20] LABS: ALBUMIN 3.9 G/DL (3.2-5.2); BILIRUBIN,DIRECT 0.3 MG/DL (<0.4); CHOLESTEROL RISK RATIO 1.99 (<5); FERRITIN 788.5 NG/ML (10.5-307.3); HDL CHOLESTEROL 109.8 MG/DL (>40)
[2022-04-22 21:33] LABS: LDL CHOLESTEROL 95.6 MG/DL (<100); TOTAL PROTEIN 6.9 G/DL (5.7-8.2)
== END ==
LOC: M WUC 08:30
PROVIDERS: ATTEND Internal Medicine Cardiovascular Disease
DX: K21.9 Gastro-esophageal reflux disease without esophagitis (principal); E78.5 Hyperlipidemia, unspecified; F10.20 Alcohol dependence, uncomplicated

== ENCOUNTER → 2022-06-26 | Outpatient (CLI) | payer OTHER ==
[~2022-06-26] MED LIST changes: +CALC600T61 PO
== END ==
LOC: M PLAIMG 06:34
PROVIDERS: ATTEND Internal Medicine Hematology & Oncology
DX: R79.89 Other specified abnormal findings of blood chemistry (principal)

== ENCOUNTER 2023-12-28 05:58 | Day surgery (SDC) | payer OTHER ==
[~2023-12-28] VITALS: Ht 185.4 cm; Wt 63.0 kg
[~2023-12-28 05:58] MED LIST changes: +B-COCAP7 PO
[2023-12-28] MEDS ORDERED: LR 1,000 ML IV SCH (06:30)
[2023-12-28] MEDS ORDERED: MIDAZOLAM INJ 2MG/2ML VIAL As Ordered ONE (07:11)
[2023-12-28] MEDS ORDERED: LIDOCAINE 2% 100MG/5ML SDV (FOR ANES.) As Ordered ONE (07:11)
[2023-12-28] MEDS ORDERED: ROCURONIUM BROMIDE 50MG/5ML VIAL As Ordered ONE (07:11)
[2023-12-28] MEDS ORDERED: propofoL 200 MG/20 ML VIAL As Ordered ONE (07:11)
[2023-12-28] MEDS ORDERED: SUGAMMADEX SODIUM 500 MG/5 ML VIAL (BRIDION) As Ordered ONE (07:11)
[2023-12-28] MEDS ORDERED: fentaNYL 100 MCG/2 ML INJECTION As Ordered ONE (07:11)
[2023-12-28] MEDS ORDERED: ONDANSETRON 4MG 2ML VIAL As Ordered ONE (07:21)
[2023-12-28] MEDS ORDERED: ACETAMINOPHEN 1000MG 100ML IV BAG As Ordered ONE (09:12)
[2023-12-28] MEDS ORDERED: HYDROmorphone HCL 2MG/ML 1ML VIAL As Ordered ONE (09:43)
[2023-12-28] MEDS ORDERED: PHENYLephrine 500MCG 5ML (100MCG/ML) SYRINGE As Ordered ONE (09:54)
[2023-12-28] MEDS: OXYMETAZOLINE 0.05% NASAL SPRAY (AFRIN) As Ordered ONE (09:55)
[2023-12-28] MEDS ORDERED: ONDANSETRON 4MG 2ML VIAL IV PRN (10:35)
[2023-12-28] MEDS ORDERED: MORPHINE 2 MG/ML 1ML VIAL IV PRN (10:35)
[2023-12-28] MEDS ORDERED: fentaNYL 100 MCG/2 ML INJECTION IV PRN (10:35)
[2023-12-28] MEDS ORDERED: oxyCODONE 5MG TAB PO PRN (10:35)
[2023-12-28 11:02] VITALS: BP 166/94; TEMP 96.9; O2SAT 97
== END 2023-12-28 11:28 | disposition home or self-care (01) ==
LOC: M SDC 05:58
PROVIDERS: ATTEND Otolaryngology
DX: D18.09 Hemangioma of other sites (principal); R06.83 Snoring; Z79.899 Other long term (current) drug therapy; F17.290 Nicotine dependence, other tobacco product, uncomplicated
CPT/HCPCS: 31541; 88305; 93005; J0131; J1100; J1171; J2250; J2371; J2405; J3010